=== PATIENT | male | born 1935 | race Caucasian/White ===

== ENCOUNTER → 2016-06-10 | Outpatient (REF) | payer MEDICARE ==
[2016-06-10 14:15] LABS: BASO # 0.1 K/mm3 (0.0-0.2); BASO % 2.2 % (0.0-1.0); EOS # 0.2 K/mm3 (0.0-0.50); EOS % 3.1 % (0.0-3.0); LARGE UNSTAINED CELL # 0.1 K/mm3 (0.0-0.4); LARGE UNSTAINED CELL % 2.2 % (0.0-4.0); LYMPH # 1.3 K/mm3 (1.5-4.5); LYMPH % 18.7 % (24.0-44.0); MEAN CORPUSCULAR HEMOGLOBIN 30.9 pg (27.0-33.0); MONO # 0.5 K/mm3 (0.0-0.8); MONO % 7.8 % (0.0-5.0); NEUTROPHILS # 4.2 K/mm3 (1.8-7.7); PLATELET COUNT, AUTOMATED 196 k/mm3 (150-450); RED CELL DISTRIBUTION WIDTH 13.7 % (11.5-14.5); WHITE BLOOD COUNT 6.4 K/mm3 (4.0-10.0)
[2016-06-10 15:03] LABS: ALBUMIN 4.3 GM/DL (3.2-5.2); ALBUMIN/GLOBULIN RATIO 1.43 (1.00-1.93); ALKALINE PHOSPHATASE 59 U/L (45-117); ALT/SGPT 24 U/L (12-78); ANION GAP 8 MEQ/L (8-16); AST/SGOT 17 U/L (15-37); BILIRUBIN,TOTAL 0.7 MG/DL (0.2-1.0); BLOOD UREA NITROGEN 20 MG/DL (7-18); CARBON DIOXIDE LEVEL 29 MEQ/L (21-32); CHLORIDE LEVEL 107 MEQ/L (98-107); CREATININE FOR GFR 0.88 MG/DL (0.70-1.30); GLOMERULAR FILTRATION RATE > 60.0 (>42); GLUCOSE, FASTING 95 MG/DL (83-110); SODIUM LEVEL 144 MEQ/L (136-145); TOTAL PROTEIN 7.3 GM/DL (6.4-8.2)
[2016-06-10 15:04] LABS: VITAMIN B12 LEVEL 716 PG/ML
[2016-06-10 15:05] LABS: FOLATE > 24.0 NG/ML
[2016-06-10 15:47] LABS: ERYTHROCYTE SEDIMENTATION RATE 5 mm/hr (0-20)
[2016-06-11 10:41] LABS: ALBUMIN 4.47 GM/DL (3.29-5.55); ALBUMIN % 61.3 % (55.8-66.1)
[2016-06-13 11:03] LABS: VITAMIN E LEVEL 16.1 mg/L (5.3-17.5)
== END ==
LOC: M LABNEURO 12:23
PROVIDERS: ATTEND Psychiatry & Neurology Neurology
DX: F06.8 Other specified mental disorders due to known physiological condition (principal); Z79.899 Other long term (current) drug therapy